=== PATIENT | female | born 1950 | race Two or more races ===

== ENCOUNTER → 2017-03-29 | Outpatient (CLI) | payer OTHER ==
[~2017-03-29] VITALS: Ht 158.8 cm; Wt 64.9 kg
[~2017-03-29] MED LIST: AMBIEN5 MG PO; DAILY VALUE1 EACH PO
== END | disposition home or self-care (01) ==
LOC: AMB 13:00
PROC: 0DB68ZX Excision of Stomach, Via Natural or Artificial Opening Endoscopic, Diagnostic (ICD-10-PCS; principal; 2017-03-29)
DX: K29.70 Gastritis, unspecified, without bleeding (principal); B96.81 Helicobacter pylori [H. pylori] as the cause of diseases classified elsewhere; E78.1 Pure hyperglyceridemia; R73.9 Hyperglycemia, unspecified; Z80.0 Family history of malignant neoplasm of digestive organs; Z82.3 Family history of stroke
CPT/HCPCS: 88305; 88342 TC

== ENCOUNTER 2017-08-13 22:06 | Observation (INO) | payer OTHER ==
[~2017-08-13] VITALS: Ht 157.5 cm; Wt 67.3 kg
[2017-08-13 22:35] LABS: HEMATOCRIT 38.8 % (36.0-46.0); MCH 29.3 PG (29.0-34.0); MCHC 33.8 G/DL (30.0-36.0); MCV 86.8 FL (83-99); PLATELET COUNT 248 K/uL (156-360); RBC DIS.WIDTH-CV 12.6 % (11.8-14.6); RBC DIS.WIDTH-SD 40.1 % (39-53); RED BLOOD COUNT 4.47 M/uL (3.80-5.20); WHITE BLOOD COUNT 7.6 K/uL (4.1-10.2)
[2017-08-13 22:43] LABS: CHLORIDE 105 mEq/L (99-109); POTASSIUM 3.9 mEq/L (3.7-5.4); SODIUM 139 mEq/L (136-147)
[2017-08-13 22:44] LABS: GLUCOSE 114 mg/dL (70-99)
[2017-08-13 22:46] LABS: ANION GAP 13 MEQ/L (2-14)
[2017-08-13 22:48] LABS: GFR ESTIMATE (CALCULATED) > 59 mL/min/
[2017-08-13 22:49] LABS: UREA NITROGEN (BUN) 20 mg/dL (9-23)
[2017-08-13 22:55] LABS: TROP-I INTERPRETATION NEGATIVE; TROPONIN-I < 0.01 ng/mL (0.0-0.30)
[2017-08-14] MEDS ORDERED: VITAMIN B-1250 MC3 PO (00:23)
[2017-08-14] MEDS ORDERED: VITAMIN D2000 UNI1 PO (00:24)
[2017-08-14] MEDS ORDERED: LO-DOSE ASPIRIN81 M2 PO (00:28)
[2017-08-14] MEDS ORDERED: FISH OIL 1,0001 EAC7 PO (00:29)
[2017-08-14] MEDS ORDERED: PRILOSEC20 MG PO (00:30)
[2017-08-14 02:24] VITALS: BP 144/77
[2017-08-14 05:41] LABS: TROP-I INTERPRETATION NEGATIVE; TROPONIN-I < 0.01 ng/mL (0.0-0.30)
[2017-08-14 07:40] LABS: Estimated Average Glucose 123 mg/dL (70-123); HEMOGLOBIN A1c (GLYCOHEMOGLOB) 5.9 % HGB (Below 5.7)
[2017-08-14 08:21] VITALS: BP 132/66
[2017-08-14 11:00] VITALS: BP 136/67
[2017-08-14 11:12] LABS: TROP-I INTERPRETATION NEGATIVE; TROPONIN-I 0.01 ng/mL (0.0-0.30)
== END 2017-08-14 14:39 | disposition home or self-care (01) ==
LOC: EME 22:06 → 5WEST 08-14 00:47 → EDOF 08-14 00:47 → ENRESERV 08-14 00:48 → 5WEST 08-14 02:01
PROVIDERS: Physician Assistant
DX: R07.9 Chest pain, unspecified (principal); R06.02 Shortness of breath; K21.9 Gastro-esophageal reflux disease without esophagitis; Z86.19 Personal history of other infectious and parasitic diseases; R73.03 Prediabetes; Z79.82 Long term (current) use of aspirin
CPT/HCPCS: 71020; 71275; 80048; 83036; 84484; 85027; 93005; 99281; 99285; G0378; J1650; J7030